=== PATIENT | female | born 1965 | race Caucasian/White ===

== ENCOUNTER → 2016-12-20 | Outpatient (CLI) | payer SELFPAY ==
[~2016-12-20] MED LIST: ALAGESIC CAPSUL1 CAP PO; ALPRAZOLAM PO; ALPRAZOLAM1 MG PO; ANTIBIOTIC PO; ASPIRIN81 M1 PO; ATACAND16 MG PO; ATORVASTATIN CA10 MG PO; AZO CRANBERRY1 EACH; BACTRIM DS TABL1 TA1 PO; BUTALB-ACETAMI1 EAC2 PO; CANDESARTAN CIL16 MG PO; CELEXA; CELEXA PO; CIPRO PO; CITALOPRAM HBR40 MG PO; COLACE PO; DOCUSATE SODIU100 MG PO; ESOMEPRAZOLE MA40 MG; FIORICET1 TAB PO; FLAGYL PO; GAS-X ULTRA ST180 MG PO; HYDROCODON-ACE1 EAC7 PO; IBUPROFEN PO; IMITREX PO; MINOCYCLINE HCL50 M1 PO; NEXIUM PO; NEXIUM20 MG PO; NORCO 7.5-3251 EACH PO; PERCOCET5/325 PO; PHENERGAN PO; PHENERGAN25 M1 PO; PHENERGAN25 MG PO; PHENTERMINE PO; PRAVACHOL20 MG PO; PRAVASTATIN SOD20 MG; PRISTIQ PO; PRISTIQ100 MG PO; RESTORIL7.5 MG PO; SEROQUEL PO; SUMATRIPTA6 MG/0.53 SUBQ; TEMAZEPAM30 MG PO; TOPIRAMATE100 MG PO; TOPIRAMATE200 MG PO; TOPROL XL; TRAMADOL HCL50 M1 PO; TRAMADOL HCL50 M2 PO; ULTRAM PO; [UNRECOGNIZED DRUG - OTHER]
== END | disposition home or self-care (01) ==
LOC: CBAR 11:07
DX: E66.01 Morbid (severe) obesity due to excess calories (principal)
CPT/HCPCS: 76000

== ENCOUNTER → 2016-12-22 | Day surgery (SDC) | payer BC ==
--- NOTE | ~2016-12-22 | OR ---
Unit #: [id number] #: [id number] Patient: SONY JEROME [id number] [address] [address] [id number] O MR#: [id number] NAME: SONY JEROME ROOM: Date of Procedure: 12/22/2016 Admission Date: 12/22/2016 Surgeon: Crescencio King M.D. : 1965 Attending Physician: Crescencio King M.D. Referring Physician: Crescencio King M.D. Primary Care Physician: Shaan Rice M.D. OPERATIVE REPORT PREOPERATIVE DIAGNOSES Constipation and change in bowel habits. POSTOPERATIVE DIAGNOSES 1. Severe right colon diverticular disease. 2. A 3 cm neoplastic lesion, right colon. PROCEDURES PERFORMED 1. Colonoscopy to cecum. 2. Tattoo marking with methylene blue of right colon lesion. 3. Biopsy of right colon lesion. ANESTHESIA IV sedation. COMPLICATIONS None. INDICATIONS FOR PROCEDURE The patient is a 51-year-old, who presents with change in bowel habits. DESCRIPTION OF PROCEDURE The patient was taken to the operating theater and placed in the left lateral decubitus position. IV sedation was initiated. Digital rectal exam was normal. Colonoscope was then passed under direct vision and navigated to the cecum. Just distal to the cecum, was a sessile lesion measuring at least 3 cm irregular and highly suspicious for a colon cancer. I was unable to remove this in its entirety due to its positioning and wide base and thin wall of the cecum. Thus, biopsies were obtained. I have marked with 1.5 mL of methylene blue. Other findings were severe diverticular disease mainly in the right colon. She tolerated the procedure well and sent to the recovery room in good condition. PLAN We will await biopsies. We will plan for elective resection. Dictated by... Crescencio King M.D. JNO/modl Unit #: [id number] #: [id number] Patient: SONY JEROME TD: 12/22/2016 16:39 JOB #: [id number] OPERATIVE REPORT X Crescencio King MD PROCEDURE OPERATIVE NOTE
== END | disposition home or self-care (01) ==
LOC: COPS 11:01
DX: D12.0 Benign neoplasm of cecum (principal); K57.30 Diverticulosis of large intestine without perforation or abscess without bleeding; F41.9 Anxiety disorder, unspecified; I10 Essential (primary) hypertension; E78.5 Hyperlipidemia, unspecified; G47.00 Insomnia, unspecified; G43.909 Migraine, unspecified, not intractable, without status migrainosus; E66.01 Morbid (severe) obesity due to excess calories; F50.89 Other specified eating disorder; E53.8 Deficiency of other specified B group vitamins; Z98.84 Bariatric surgery status; Z90.49 Acquired absence of other specified parts of digestive tract; Z98.890 Other specified postprocedural states; Z88.6 Allergy status to analgesic agent; Z79.899 Other long term (current) drug therapy
CPT/HCPCS: 88305; J2250

== ENCOUNTER → 2016-12-29 | Outpatient (CLI) | payer BC ==
--- NOTE | ~2016-12-29 | EKG ---
PATIENT: SONY JEROME UNIT #: [id number] Ventricular Rate: 58 BPM Atrial Rate: 58 BPM P-R Interval: 150 ms QRS Duration: 74 ms Q-T Interval: 408 ms QTC Calculation(Bezet): 400 ms P [place]: 28 degrees Calculated R [place]: 44 degrees Calculated T [place]: 35 degrees Diagnosis Line: Sinus bradycardia Diagnosis Line: Otherwise normal ECG Diagnosis Line: No previous ECGs available Diagnosis Line: Confirmed by DAVID OLGUIN MD ([id number]) on 01/01/2017 Diagnosis Line: 7:22:25 AM INTERPRETING MD: CLAU WALDRON
[2016-12-29 13:31] LABS: HEMATOCRIT 41.7 % (35.0-45.0); HEMOGLOBIN 13.8 gm/dL (12.0-16.0); MEAN CELL VOLUME 92.9 FL (83-96); MEAN CORPUSCULAR HEMOGLOBIN 30.8 PG (28-34); MEAN CORPUSCULAR HGB CONC 33.2 g/dL (30-36); MEAN PLATELET VOLUME 8.9 FL (6.5-11.5); RED BLOOD COUNT 4.48 X10e (3.90-5.30); RED CELL DISTRIBUTION WIDTH 13.9 % (11.0-15.5); WHITE BLOOD COUNT 5.4 X10e3 (4.0-10.5)
[2016-12-29 14:08] LABS: BLOOD UREA NITROGEN 10 mg/dL (9-23); BUN/CREATININE RATIO 11.11; CALCIUM SERUM 9.3 mg/dL (8.4-10.2); CARBON DIOXIDE 28 mmol/L (22-31); CHLORIDE 104 mmol/L (100-111); CREATININE SERUM 0.9 mg/dL (0.6-1.4); GLOM FILT RATE Estimated ABOVE60 mL/min (>60); GLUCOSE FASTING 104 mg/dL (70-110); POTASSIUM 4.1 mmol/L (3.5-5.1); SODIUM 137 mmol/L (135-145)
== END | disposition home or self-care (01) ==
LOC: CAMB 13:06
PROVIDERS: Surgery
DX: Z01.818 Encounter for other preprocedural examination (principal); K63.89 Other specified diseases of intestine; R00.1 Bradycardia, unspecified
CPT/HCPCS: 36415; 80048; 82378; 85027; 93005

== ENCOUNTER 2017-01-05 07:10 | Inpatient (IN) | payer BC ==
--- NOTE | ~2017-01-05 | CO ---
Unit #: [id number] #: [id number] Patient: SONY JEROME [id number] [address] [address] [id number] I MR#: [id number] NAME: SONY JEROME. ROOM: 469 Age: 51 Sex: F Admission Date: 01/05/2017 : 1965 Attending Physician: Crescencio King M.D. Primary Care Physician: Shaan Rice M.D. CONSULTATION REPORT REASON FOR CONSULTATION Bradycardia. HISTORY OF PRESENT ILLNESS This 51-year-old was admitted under surgeon's care for colon polyp. She had right colectomy. Today is postop day one. She is complaining of generalized abdominal pain, also severe nausea and vomiting. No fever. No chills. No chest pain. No shortness of breath. She denies any low heart rate in the past. No thyroid problems. She is not on any beta blockers. PAST MEDICAL HISTORY 1. History of hypertension. 2. Hyperlipidemia. 3. Anxiety. 4. Depression. 5. History of diverticulitis. 6. History of H. pylori. 7. Iron deficiency anemia. 8. History of lap gastric band. 9. History of gallbladder surgery. 10. History of uterine ablation and tubal ligation. 11. Tummy tuck surgery. 12. Breast lift with implants. 13. Plantar fascitis surgery on the right side. 14. Also, she is complaining of third toe fracture and swelling. Podiatry, according to them, she needs toe surgery soon but has been postponed because of colectomy. SOCIAL HISTORY No smoking. No alcohol. No drugs. FAMILY HISTORY Positive for hypertension. ALLERGIES Codeine. CURRENT HOME MEDICATIONS 1. Xanax 1 mg p.o. daily. 2. Candesartan daily. 3. Atorvastatin 10 mg daily. 4. Fioricet one tablet daily. Unit #: [id number] #: [id number] Patient: SONY JEROME 5. Pristiq 100 mg p.o. daily. 6. Phenergan 25 mg daily. 7. Restoril 30 mg at bedtime. 8. Sumatriptan 6mg subcu. 9. Advil 200 mg one tablet p.o. daily. 10. Lortab 5 mg q.6 p.r.n. 11. Colace 100 mg daily. 12. She takes an antibiotic. Unknown details. REVIEW OF SYSTEMS No headache. No visual changes. No leg swelling. No skin rash. She does complain of left third toe pain. She has fracture. She is suppose to go for surgery. I reviewed a 12-point system with her which is negative except as in history. PHYSICAL EXAMINATION GENERAL APPEARANCE: A 51-year-old lying on bed in mild distress secondary to pain and nausea, able to provide history, alert, oriented x3. VITAL SIGNS: Temperature 97.5. Pulse 55. Respiration 20. Blood pressure 137/85. HEENT: Pupils equal and reactive to light and accommodation. Dry mucosa present. NECK: Supple. HEART: S1, S2. Regular rhythm. LUNGS: Clear to auscultation. Decreased breath sounds present. ABDOMEN: Soft. Abdominal wound looks good. No discharge. Bowel sounds are decreased. EXTREMITIES: No pedal edema. Left third toe shows mild swelling. No edema. No wound. NEUROLOGIC: Moving all extremities. No focal neurological deficits. DIAGNOSTIC STUDIES LABORATORY: WBC 8.5, hemoglobin 12.5, platelets 230. Sodium 136, potassium 4.3, creatinine 0.8, calcium 9.1. CARDIOVASCULAR: EKG shows heart rate of 55, sinus bradycardia. ASSESSMENT AND PLAN 1. Bradycardia most likely secondary to her medications, especially opiates and Phenergan. I am going to monitor her closely on telemetry and I am going to check for TSH abnormalities. Also, she might have obstructive sleep apnea. Protocol has been started. 2. Colon polyps status post polypectomy. Treatment as per primary. 3. Hypertension, currently well controlled. I will follow up. 4. Anxiety and depression. Continue Xanax but we need to be monitoring her heart rate while she is on sedatives and narcotics. Thank you for consultation. Dictated by... Dayanna Moraes M.D. Darron TD: 01/06/2017 11:02 JOB #: [id number] Unit #: [id number] #: [id number] Patient: SONY JEROME CONSULTATION REPORT Page 1 of 1 X Dayanna Moraes MD X CONSULTATION REPORT
--- NOTE | ~2017-01-05 | DS ---
Unit #: [id number] #: [id number] Patient: SONY JEROME [id number] [address] [address] [id number] I MR#: [id number] NAME: SONY JEROME ROOM: 45 Age: 51 Sex: F Admission Date: 01/05/2017 : 1965 Discharge Date: 01/09/2017 Attending Physician: Crescencio King M.D. Primary Care Physician: Shaan Rice M.D. DISCHARGE SUMMARY DIAGNOSIS Neoplastic lesion right colon. PROCEDURE Laparoscopic right colectomy. HOSPITAL COURSE The patient is a 51-year-old lady, who presented with a complex polyp in the right colon. She underwent laparoscopic colectomy. Postop course uncomplicated. DISPOSITION The patient will be discharged home in good condition. DISCHARGE INSTRUCTIONS She is to follow regular diet as tolerated. Activities levels were discussed. She is to follow up with Dr. King in 10 days. DISCHARGE MEDICATIONS Regular home medications and Marathon 7.5 mg q.4 p.r.n. Pathology was pending at the time of discharge. Dictated by... Mark Castro/nayan TD: 01/10/2017 00:58 JOB #: [id number] DISCHARGE SUMMARY Page 1 of 1 X Crescencio King MD X DISCHARGE SUMMARY
--- NOTE | ~2017-01-05 | OR ---
Unit #: [id number] #: [id number] Patient: SONY JEROME [id number] [address] [address] [id number] Delia MR#: [id number] NAME: SONY JEROME. ROOM: 452 Date of Procedure: 01/05/2017 Admission Date: 01/05/2017 Surgeon: Crescencio King M.D. : 1965 Attending Physician: Crescencio King M.D. Primary Care Physician: Shaan Rice M.D. OPERATIVE REPORT PREOPERATIVE DIAGNOSIS Neoplastic colonic polyp, right colon. POSTOPERATIVE DIAGNOSIS Neoplastic colonic polyp, right colon. PROCEDURE PERFORMED Laparoscopic right colectomy. [employer] Emery. ANESTHESIA General endotracheal anesthesia. ESTIMATED BLOOD LOSS 100 mL. IV FLUIDS 1500 crystalloid. COMPLICATIONS None. INDICATIONS FOR PROCEDURE The patient is a 51-year-old lady who presents for screening colonoscopy. She was found to have a suspicious polyp that was unable to be removed by endoscopy. She presents for colectomy. DESCRIPTION OF PROCEDURE The patient was taken to the operating theater and placed in supine position. General anesthesia was induced. The abdomen was prepped and draped. A 10-mm Visiport was then placed in the midline. The abdomen was insufflated to 15 mmHg with Co2. I placed a right lower quadrant 10 mm, left lower quadrant 5 mm. General inspection of the abdomen revealed no gross abnormalities. There were some adhesions in the right upper quadrant, likely from her gallbladder. These were taken down with Bovie electrocautery. I then mobilized the cecum and the hepatic flexure as well as the small bowel from its retroperitoneal attachments. I identified the area which I previously tattooed, which was distal to the lesion in question. I then made a small midline incision to deliver the colon. We then fired a NEHA stapler across the terminal ileum as well as Unit #: [id number] #: [id number] Patient: SONY JEROME the second one distal to the lesion on the colon at the hepatic flexure. I took down the mesentery with 0 silk sutures. I then created a yoam-ch-rnzm anastomosis with the NEHA stapler. The enterotomies were closed with NEHA stapler. I reinforced with 2-0 silk sutures. I closed the mesentery with 2-0 silk sutures. The specimen was then opened on the back table and found to be inclusive of our lesion in question. Gross margins were adequate and confirmed by pathology. We then irrigated with normal saline and aspirated all fluids dry. I then closed with interrupted #1 Vicryl and kayden to the skin. The patient tolerated the procedure well and sent to the recovery room in good condition. Dictated by... Mark Castro/nayan TD: 01/06/2017 08:05 JOB #: [id number] OPERATIVE REPORT Page 1 of 1 X Crescencio King MD X PROCEDURE OPERATIVE NOTE
[~2017-01-05 07:10] MED LIST changes: -ANTIBIOTIC PO; -DOCUSATE SODIU100 MG PO; -HYDROCODON-ACE1 EAC7 PO; -NORCO 7.5-3251 EACH PO
[2017-01-05] MEDS ORDERED: HYDROCODON-ACE1 EAC7 PO (07:31)
[2017-01-05] MEDS ORDERED: DOCUSATE SODIU100 MG PO (07:32)
[2017-01-05] MEDS ORDERED: ANTIBIOTIC PO (07:32)
[2017-01-06 03:30] LABS: HEMATOCRIT 37.6 % (35.0-45.0); HEMOGLOBIN 12.5 gm/dL (12.0-16.0); MEAN CELL VOLUME 93.8 FL (83-96); MEAN CORPUSCULAR HEMOGLOBIN 31.1 PG (28-34); MEAN CORPUSCULAR HGB CONC 33.1 g/dL (30-36); MEAN PLATELET VOLUME 8.9 FL (6.5-11.5); RED BLOOD COUNT 4.01 X10e (3.90-5.30); RED CELL DISTRIBUTION WIDTH 13.6 % (11.0-15.5); WHITE BLOOD COUNT 8.5 X10e3 (4.0-10.5)
[2017-01-06 04:02] LABS: CALCIUM SERUM 9.1 mg/dL (8.4-10.2); CREATININE SERUM 0.8 mg/dL (0.6-1.4); GLOM FILT RATE Estimated 84.2 mL/min (>60); POTASSIUM 4.3 mmol/L (3.5-5.1)
[2017-01-07 02:30] LABS: HEMATOCRIT 33.9 % (35.0-45.0); HEMOGLOBIN 11.3 gm/dL (12.0-16.0); MEAN CELL VOLUME 92.9 FL (83-96); MEAN CORPUSCULAR HGB CONC 33.4 g/dL (30-36); MEAN PLATELET VOLUME 9.4 FL (6.5-11.5); RED BLOOD COUNT 3.65 X10e (3.90-5.30); RED CELL DISTRIBUTION WIDTH 13.7 % (11.0-15.5); WHITE BLOOD COUNT 9.3 X10e3 (4.0-10.5)
[2017-01-07 02:51] LABS: ALBUMIN SERUM 3.6 g/dL (3.5-5.0); ALKALINE PHOSPHATASE 104 U/L (32-92); ALT (SGPT) 25 U/L (10-40); AST (SGOT) 31 U/L (10-42); BILIRUBIN,TOTAL 0.6 mg/dL (0.2-2.0); BLOOD UREA NITROGEN <5 mg/dL (9-23); BUN/CREATININE RATIO 5.55; CALCIUM SERUM 9.1 mg/dL (8.4-10.2); CARBON DIOXIDE 28 mmol/L (22-31); CHLORIDE 107 mmol/L (100-111); CREATININE SERUM 0.9 mg/dL (0.6-1.4); GLUCOSE FASTING 113 mg/dL (70-110); MAGNESIUM 1.7 mg/dL (1.6-3.0); POTASSIUM 3.6 mmol/L (3.5-5.1); PROTEIN TOTAL SERUM 6.5 g/dL (6.0-8.3); SODIUM 144 mmol/L (135-145)
[2017-01-08 03:36] LABS: BASOPHIL% 0.6 % (0-2.5); EOSINOPHIL# 0.4 X10e3 (0-0.7); EOSINOPHIL% 4.9 % (0.0-7.0); HEMATOCRIT 32.2 % (35.0-45.0); HEMOGLOBIN 10.8 gm/dL (12.0-16.0); MEAN CELL VOLUME 92.7 FL (83-96); MEAN CORPUSCULAR HEMOGLOBIN 31.2 PG (28-34); MEAN CORPUSCULAR HGB CONC 33.6 g/dL (30-36); MEAN PLATELET VOLUME 9.2 FL (6.5-11.5); MONOCYTE# 0.8 X10e3 (0-1.0); MONOCYTE% 10.4 % (3.0-12.0); NEUTROPHIL# 4.2 X10e3 (1.5-7.1); NEUTROPHIL% 57.1 % (40-75); PLATELET COUNT 201 X10e3 (140-420); RED BLOOD COUNT 3.47 X10e (3.90-5.30); RED CELL DISTRIBUTION WIDTH 13.6 % (11.0-15.5); WHITE BLOOD COUNT 7.4 X10e3 (4.0-10.5)
[2017-01-08 03:48] LABS: DIFF IND NO
[2017-01-08 04:12] LABS: CALCIUM SERUM 8.8 mg/dL (8.4-10.2); CARBON DIOXIDE 29 mmol/L (22-31); CHLORIDE 103 mmol/L (100-111); CREATININE SERUM 0.8 mg/dL (0.6-1.4); GLOM FILT RATE Estimated 84.2 mL/min (>60); GLUCOSE FASTING 103 mg/dL (70-110); POTASSIUM 3.3 mmol/L (3.5-5.1); SODIUM 141 mmol/L (135-145)
[2017-01-08 04:19] LABS: BLOOD UREA NITROGEN <5 mg/dL (9-23); BUN/CREATININE RATIO 6.25
[2017-01-09 07:24] LABS: CALCIUM SERUM 9.4 mg/dL (8.4-10.2); CREATININE SERUM 0.9 mg/dL (0.6-1.4); MAGNESIUM 1.6 mg/dL (1.6-3.0); POTASSIUM 3.8 mmol/L (3.5-5.1)
[2017-01-09] MEDS ORDERED: NORCO 7.5-3251 EACH PO (07:54)
== END 2017-01-09 12:18 | disposition home or self-care (01) | DRG 330 ==
LOC: CSUR 07:10 → C4C 11:19 → C4B 01-06 18:26
PROVIDERS: Internal Medicine; Nurse Practitioner; Surgery
PROC: 0DTF4ZZ Resection of Right Large Intestine, Percutaneous Endoscopic Approach (ICD-10-PCS; principal; 2017-01-05 09:00)
DX: D49.0 Neoplasm of unspecified behavior of digestive system (principal); D62 Acute posthemorrhagic anemia; E66.01 Morbid (severe) obesity due to excess calories; I10 Essential (primary) hypertension; E78.5 Hyperlipidemia, unspecified; F41.9 Anxiety disorder, unspecified; F32.9 Major depressive disorder, single episode, unspecified; D50.9 Iron deficiency anemia, unspecified; R00.1 Bradycardia, unspecified; K63.5 Polyp of colon; Z98.84 Bariatric surgery status; F50.89 Other specified eating disorder; Z68.34 Body mass index [BMI] 34.0-34.9, adult; G47.33 Obstructive sleep apnea (adult) (pediatric)
CPT/HCPCS: 80048; 80053; 82947; 83735; 84443; 85025; 85027; 88309; 88329; 94761; J0131; J0330; J1170; J1885; J2250; J2270; J2405; J2550; J2710; J3010; J3030

== ENCOUNTER 2017-01-29 19:50 | Emergency (ER) | payer BC ==
--- NOTE | ~2017-01-29 | CT2 ---
[facility] A Service of [facility] & [facility] RADIOLOGY TEXT RESULTS PATIENT: SONY JEROME LOCATION: [facility] : 61 UNIT #: [id number] AGE: [address]: Sheryl Guillen MD SEX: F ORDER DR: [id number] [id number] [facility] [place] [facility] [place], [place] [address] [id number] E MR#: [id number] Acc #: [id number] NAME: SONY JEROME. : 1965 SEX: F STUDY DATE/TIME: 01/29/2017 20:01 UNIT: [facility] ROOM: STUDY DESCRIPTION: CT Abd and Pelv W Cont Attending Physician: Sheryl Guillen M.D. Ordering Physician: Sheryl Guillen M.D. Primary Care Physician: Shaan Rice M.D. MEDICAL IMAGING REPORT This report is preliminary unless electronic signature is present EXAM CT abdomen and pelvis with contrast. DATE 01/29/2017 at 20:01 HISTORY Abdominal pain after bowel resection on 01/05/2017. COMPARISON CT abdomen with contrast 04/11/2010. There is no more recent CT abdomen imaging study at this institution for comparison. This CT exam was performed with one or more of the following radiation dose reduction techniques: automatic exposure control, adjustment of mA and/or kV according to patient size, and iterative reconstruction. PROCEDURE 5 mL axial images from the lung bases through lesser trochanters after intravenous contrast administration. Enteric contrast was not administered. Sagittal and coronal reformatted images were obtained. FINDINGS ABDOMEN FINDINGS: Lung bases are clear. There is mild thickening of the lower thoracic esophagus or esophageal pouch above the patient's Lap-Band device. The band appears stable in position with insufflation port located in the left abdominal supraumbilical region. There is a tiny umbilical hernia containing only omental fat. There is mild intrahepatic biliary ductal dilation up to 6 mm, and common bile duct is dilated up to 14 mm, slightly increased to 12 mm on 04/11/2010 and the distal CBD measures 9 mm, unchanged from prior. No abnormal pancreatic ductal dilation is seen. No peripancreatic [facility] A Service of [facility] & [facility] RADIOLOGY TEXT RESULTS PATIENT: SONY JEROME LOCATION: [facility] : 61 UNIT #: [id number] AGE: [address]: Sheryl Guillen MD SEX: F ORDER DR: inflammatory changes are identified. Gallbladder is presumably surgically absent. Spleen, pancreas, adrenals and kidneys are within normal limits. There are surgical changes of ascending colon with presumed enterocolic anastomosis in the right lateral abdomen. Appendix is not visualized and presumably surgically absent. No free air, pneumatosis or abscess or pathologic adenopathy is seen. Moderate colonic stool burden. Transverse, descending and sigmoid colon diverticulosis without convincing CT evidence of acute diverticulitis. PELVIS FINDINGS: There is significant urinary bladder distension with fluid, extending nearly 14.8 cm craniocaudally. Uterus is atrophic. Rectum is within normal limits. No pelvic free fluid. Small bilateral pelvic phleboliths. No acute osseous abnormalities are identified. IMPRESSION 1. No active inflammatory changes are identified within the abdomen or pelvis. 2. Surgical changes of ascending colon with presumed enterocolic anastomosis. No evidence of high-grade bowel obstruction. 3. Moderate stool burden in the ascending, transverse and proximal descending colon. Correlate for constipation symptoms. 4. Uncomplicated colonic diverticulosis. No evidence of acute diverticulitis at this time. 5. There is intrahepatic and extrahepatic biliary ductal dilation as described in report which has slightly increased from 2009. If the patient has symptoms referable to the right upper quadrant and abnormal liver function test, consider correlation with MRCP or ERCP. 6. Mild thickening of the lower thoracic esophagus or the patient's gastric pouch above the Lap-Band site. Correlate for esophagitis-type symptoms. 7. Significant urinary bladder distension with fluid. No bladder outlet obstructing abnormality is seen. No hydronephrosis. Dictated by... No Joy M.D. THIS IS AN ELECTRONICALLY VERIFIED REPORT No Joy M.D. at 01/30/2017 7:11 AM HARDIK/pastora TD: 01/30/2017 00:26 JOB #: [id number] MEDICAL IMAGING REPORT Page 1 of 1 COPY
[2017-01-29 17:54] LABS: URINE SOURCE CLEAN CATCH
[2017-01-29 17:59] LABS: URINE APPEARANCE CLEAR; URINE BILIRUBIN NEG (NEG); URINE BLOOD 1+ (NEG); URINE COLOR YELLOW; URINE GLUCOSE NEG (NEG); URINE KETONE NEG (NEG); URINE LEUKOCYTE ESTERASE NEG (NEG); URINE NITRATE NEG (NEG); URINE PROTEIN NEG (NEG); URINE SPECIFIC GRAVITY 1.002 (1.003-1.035); URINE UROBILINOGEN 0.2 MG/DL (NEG)
[2017-01-29 18:01] LABS: URINE BACTERIA AUWI NEG (NEGATIVE); URINE SQUAMOUS EPITHELIAL CELL NONE SEEN /[HPF]; UWBCS1 AUWI 0-2 (0-5)
[2017-01-29 18:02] LABS: CULTURE INDICATED? NO
[2017-01-29 18:07] LABS: BASOPHIL# 0.1 X10e3 (0-0.3); BASOPHIL% 0.7 % (0-2.5); EOSINOPHIL# 0.3 X10e3 (0-0.7); EOSINOPHIL% 3.8 % (0.0-7.0); HEMATOCRIT 38.4 % (35.0-45.0); HEMOGLOBIN 12.5 gm/dL (12.0-16.0); LYMPHOCYTE# 2.4 X10e3 (1.0-3.5); LYMPHOCYTE% 30.5 % (17.0-45.0); MEAN CELL VOLUME 93.8 FL (83-96); MEAN CORPUSCULAR HEMOGLOBIN 30.5 PG (28-34); MEAN CORPUSCULAR HGB CONC 32.5 g/dL (30-36); MONOCYTE# 0.7 X10e3 (0-1.0); NEUTROPHIL# 4.4 X10e3 (1.5-7.1); PLATELET COUNT 312 X10e3 (140-420); RED BLOOD COUNT 4.09 X10e (3.90-5.30); RED CELL DISTRIBUTION WIDTH 13.5 % (11.0-15.5); WHITE BLOOD COUNT 7.9 X10e3 (4.0-10.5)
[2017-01-29 18:11] LABS: DIFF IND NO
[2017-01-29 18:35] LABS: ALBUMIN SERUM 4.7 g/dL (3.5-5.0); BILIRUBIN, DIRECT 0.1 mg/dL (0.0-0.2); BILIRUBIN,INDIRECT 0.6 mg/dL (0.0-0.9); BILIRUBIN,TOTAL 0.7 mg/dL (0.2-2.0); BUN/CREATININE RATIO 15.55; CALCIUM SERUM 9.7 mg/dL (8.4-10.2); CREATININE SERUM 0.9 mg/dL (0.6-1.4); POTASSIUM 3.8 mmol/L (3.5-5.1); PROTEIN TOTAL SERUM 7.7 g/dL (6.0-8.3)
[~2017-01-29 19:50] MED LIST changes: +ANTIBIOTIC PO; +DOCUSATE SODIU100 MG PO; +HYDROCODON-ACE1 EAC7 PO; +NORCO 7.5-3251 EACH PO
== END 2017-01-29 21:40 | disposition home or self-care (01) ==
LOC: CED 19:50
PROVIDERS: Emergency Medicine
DX: K59.00 Constipation, unspecified (principal); I10 Essential (primary) hypertension; E78.5 Hyperlipidemia, unspecified; Z88.5 Allergy status to narcotic agent
CPT/HCPCS: 36415; 74177; 80048; 80076; 81003; 83690; 85025; 96361; 96374; 96375; 99284; J1885; J2270; J2405; Q9967

== ENCOUNTER → 2017-02-08 | Outpatient (CLI) | payer BC ==
--- NOTE | ~2017-02-08 | CT2 ---
[facility] A Service of [facility] RADIOLOGY TEXT RESULTS PATIENT: SONY MORGAN LOCATION: [facility] : 61 UNIT #: [id number] AGE: [address]: Crescencio King MD SEX: F ORDER DR: [id number] [facility] [address] [place], [place] [address] [id number] O MR#: [id number] Acc #: [id number] NAME: SONY MORGAN. : 1965 SEX: F STUDY DATE/TIME: 02/08/2017 10:57 UNIT: [facility] ROOM: STUDY DESCRIPTION: CT Abd and Pelv W Cont Attending Physician: Crescencio King M.D. Referring Physician: Crescencio King M.D. Ordering Physician: Crescencio King M.D. Primary Care Physician: Shaan Rice M.D. MEDICAL IMAGING REPORT This report is preliminary unless electronic signature is present EXAM CT abdomen and pelvis with contrast 02/08/2017 INDICATIONS Left-sided abdominal pain since colon surgery January 05. TECHNIQUE CT scan of the abdomen and pelvis was performed following the administration of oral and IV contrast. Coronal and sagittal reformatted images were obtained. This CT exam was performed with one or more of the following radiation dose reduction techniques: automatic exposure control, adjustment of mA and/or kV according to patient size, and iterative reconstruction. COMPARISON STUDIES Comparison is made with 01/29/[address] ABDOMEN: The lung bases are clear. Tiny hiatal hernia. Lap-Band. Cholecystectomy. Liver unremarkable. Spleen unremarkable. Kidneys, adrenal glands and pancreas are unremarkable. There is no free fluid or free air. No fluid collection. CT PELVIS: Postop changes of the cecum and postop appendectomy. Extensive diverticulosis without evidence for diverticulitis. No free fluid or fluid collection. The bone windows are unremarkable. IMPRESSION 1. Extensive diverticulosis but no evidence for diverticulitis. 2. Postop changes of Lap-Band surgery. 3. No evidence of free air, fluid collection or free fluid. [facility] A Service of [facility] RADIOLOGY TEXT RESULTS PATIENT: SONY MORGAN LOCATION: [facility] : 61 UNIT #: [id number] AGE: [address]: Crescencio King MD SEX: F ORDER DR: Dictated by... Tom Morgan M.D. THIS IS AN ELECTRONICALLY VERIFIED REPORT Tom Morgan M.D. at 02/09/2017 9:33 AM Milena TD: 02/08/2017 16:45 JOB #: [id number] MEDICAL IMAGING REPORT Page 1 of 1 COPY
[2017-02-08 11:06] LABS: POC - CREATININE 0.99 mg/dL (0.44-1.03); POC - GFR >60.0 mL/min (>60)
== END | disposition home or self-care (01) ==
LOC: CCAT 09:11
PROVIDERS: Surgery
DX: R10.84 Generalized abdominal pain (principal); K57.90 Diverticulosis of intestine, part unspecified, without perforation or abscess without bleeding; Z98.84 Bariatric surgery status; Z98.890 Other specified postprocedural states
CPT/HCPCS: 74177; 82565; Q9967